=== PATIENT | male | born 1980 | race Two or more races ===

== ENCOUNTER → 2016-04-23 | Outpatient (CLI) | payer SELFPAY ==
[~2016-04-23] MED LIST: ALPR0.25 PO; AMLO25TA PO; CITA10TA5 PO; ECOT81TA5 PO; MULTCAP PO; PROZ10CA7 PO
--- NOTE | 2016-04-23 12:57 | REP ---
LEFT KNEE SERIES, COMPLETE: 04/23/2016 CLINICAL HISTORY: Trauma, patient fell. Left knee pain. No prior study. FINDINGS: The five views show spurs in the tibial spines but no narrowing of the medial of lateral compartment. Small spurs patellar margins. I do not see any definite fracture, loose body, or joint effusion. There is a small fabella posterior to the lateral femoral condyle. Proximal tibiofibular articulation was intact. There is no joint space narrowing or patellar subluxation. No definite effusion, fracture, or avulsion. IMPRESSION: 1. Minor degenerative changes at the knee without joint space narrowing, effusion, loose body, or osteochondral defect. Signed by Curt Marcial MD 04/23/2016 06:39 P
== END ==
LOC: M LRY 12:04
PROVIDERS: ATTEND Nurse Practitioner Family
DX: S89.92XA Unspecified injury of left lower leg, initial encounter (principal); X58.XXXA Exposure to other specified factors, initial encounter; Y92.89 Other specified places as the place of occurrence of the external cause

== ENCOUNTER → 2018-04-25 | Outpatient (REF) | payer OTHER | LOC: M SFHCLERA 18:07 | PROVIDERS: ATTEND Nurse Practitioner Family | DX: J00 Acute nasopharyngitis [common cold] (principal) ==